=== PATIENT | female | born 1975 ===

== ENCOUNTER 2016-09-27 00:09 | Emergency (ER) | payer SELFPAY ==
[2016-09-27] MEDS ORDERED: Sodium Chloride 0.9% 1,000 ML IV ONE (00:40)
[2016-09-27] MEDS ORDERED: Sodium Chloride 0.9% 1,000 ML ONE (00:51)
[2016-09-27 01:08] LABS: SQUAMOUS EPITHIAL 1 /hpf (0-5); URINE BILIRUBIN NEGATIVE (NEGATIVE); URINE CLARITY Clear (Clear); URINE COLOR Straw (YELLOW); URINE GLUCOSE (UA) NORMAL (Normal); URINE LEUKOCYTE ESTERASE 1+ Leu/uL (Negative); URINE NITRATE NEGATIVE (NEGATIVE); URINE PROTEIN NEGATIVE (NEGATIVE); URINE UROBILINOGEN NORMAL mg/dL (0.2-1.0)
[2016-09-27 01:17] LABS: BASO % 0.4 % (0.0-2.0); EOS # 0.1 K/uL (0.0-0.7); EOS % 1.2 % (0.0-4.0); HEMOGLOBIN 12.2 g/dL (11.0-16.0); LYMPH # 2.3 K/uL (1.0-4.3); LYMPH % 25.2 % (20.0-40.0); MEAN CELL VOLUME 85.4 fL (81.0-99.0); MEAN CORPUSCULAR HGB CONC 33.9 g/dL (33.0-37.0); MEAN PLATELET VOLUME 7.3 fL (7.2-11.7); MONO # 0.9 K/uL (0.0-0.8); MONO % 9.6 % (0.0-10.0); NEUT # 5.9 K/uL (1.8-7.0); NEUT % 63.6 % (50.0-75.0); RBC 4.21 Mil/uL (3.80-5.20); RED CELL DISTRIBUTION WIDTH 13.4 % (11.5-14.5); WHITE BLOOD COUNT 9.3 K/uL (4.8-10.8)
[2016-09-27 01:20] LABS: ALBUMIN 3.8 g/dL (3.5-5.0)
[2016-09-27 01:22] LABS: ALB/GLOB RATIO 1.2 (1.0-2.1); ALT/SGPT 26 U/L (9-52); AST/SGOT 18 U/L (14-36); BLOOD UREA NITROGEN 12 mg/dL (7-17); CALCIUM 9.4 mg/dl (8.6-10.4); GFR AFRICAN-AMERICAN > 60; GFR NON-AFRICAN AMERICAN > 60
[2016-09-27 01:25] LABS: HCG,QUALITATIVE URINE POSITIVE (NEGATIVE)
[2016-09-27 01:48] LABS: URINE BLOOD 1+ (NEGATIVE)
[2016-09-27 02:11] VITALS: O2SAT 100
--- NOTE | 2016-09-27 04:20 | US ---
EXAM: US First Trimester, Transabdominal US , Transvaginal CLINICAL HISTORY: 40 years old, female; Pain; complicated by abdominal or pelvic pain; Lower; First trimester; Gestational age or lmp: 07/23/16; ; Additional info: Pain/bleeding, R/O ectopic TECHNIQUE: Real-time transabdominal and transvaginal obstetrical ultrasound of the maternal pelvis and a first trimester with image documentation. Transvaginal imaging was used for better evaluation of the fetus and adnexa. EXAM DATE/TIME: 09/27/2016 1:30 AM COMPARISON: No relevant prior studies available. FINDINGS: Uterus: Measures 11.5 x 6 x 7.6 cm. Demonstrates two separate endometrial stripes, highly suspicious for an underlying Mullerian duct anomaly, such as a bicornuate uterus or septate uterus. Single intrauterine gestational sac identified, located on the right side of the uterus. pole, yolk sac and amnion are seen. Estimated gestational age is 5 weeks, 6 days, based a crown-rump length of 3.1 mm. There is absence of detectable heart motion. There is absence of flow within the pole on color imaging. Findings are highly suspicious for intrauterine demise. The margins of the gestational sac are irregular, an abnormal finding. A 1.5 x 1.2 cm round, hypoechoic area is seen in the uterine myometrium anteriorly, suspicious for a small intramural fibroid. Cervix appears closed. Right ovary: Within normal limits in appearance. Measures 3.3 x 2.6 x 3.2 cm. Flow seen in the right ovary on color and Doppler imaging, with no evidence of torsion. Left ovary: Within normal limits in appearance. Measures 2.9 11.1 x 2.1 cm. Flow seen in the left ovary on color and Doppler imaging, with no evidence of torsion. Free fluid in the cul de sac: None seen. 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 There is a 5 week, 6 day intrauterine gestational sac, located in the right uterine horn. There is absence of detectable heart motion, suspicious for intrauterine demise. Short term ultrasound followup is recommended to confirm this. See above for remaining findings.
--- NOTE | 2016-09-27 04:48 | C.PDOC ---
Time Seen by Provider: 09/27/16 00:35 Chief Complaint (Nursing): Female Genitourinary History Per: Patient, Family, Business Applications Analyst History/Exam Limitations: language barrier Onset/Duration Of Symptoms: Days (2) Current Symptoms Are (Timing): Still Present Severity: Moderate Location Of Pain/Discomfort: Suprapubic Quality Of Discomfort: Cramping Exacerbating Factors: None Alleviating Factors: None Additional History Per: Prior Records Abnormal Vaginal Bleeding: Yes Last Menstral Period: July 23, 2016 Past Medical History Reviewed: Historical Data, Nursing Documentation, Vital Signs Vital Signs: Last Vital Signs Temp 98 F 09/27/16 04:49 Pulse 71 09/27/16 04:49 Resp 18 09/27/16 04:49 BP 116/60 09/27/16 04:49 Pulse Ox 100 09/27/16 04:50 - Medical History PMH: No Chronic Diseases Surgical History: No Surg Hx Family History: States: Unknown Family Hx - Social History Hx Alcohol Use: No Hx Substance Use: No - Immunization History Hx Tetanus Toxoid Vaccination: No Hx Influenza Vaccination: No Hx Pneumococcal Vaccination: No Review Of Systems Except As Marked, All Systems Reviewed And Found Negative. Constitutional: Negative for: Fever, Weakness Cardiovascular: Negative for: Chest Pain Respiratory: Negative for: Shortness of Breath Gastrointestinal: Negative for: Vomiting, Diarrhea Genitourinary: Positive for: Vaginal Bleeding, Pelvic Pain Musculoskeletal: Negative for: Neck Pain, Back Pain Skin: Negative for: Rash Neurological: Negative for: Weakness, Numbness, Seizures, Altered Mental Status Physical Exam - Physical Exam Appears: Non-toxic, No Acute Distress Skin: Normal Color, Warm, Dry, No Rash Head: Atraumatic, Normacephalic Eye(s): bilateral: Normal Inspection, PERRL, EOMI Neck: Normal ROM, Supple Cardiovascular: Rhythm Regular Respiratory: Normal Breath Sounds, No Accessory Muscle Use Gastrointestinal/Abdominal: Soft, Tenderness (mild suprapubic), No Guarding, No Rebound Back: No CVA Tenderness Extremity: Normal ROM Neurological/Psych: Oriented x3, Normal Motor, Normal Sensation ED Course And Treatment - Laboratory Results Result Diagrams: 09/27/16 01:04 09/27/16 01:04 Interpretation Of Abnormal: Possible UTI Urine POC: Positive O2 Sat by Pulse Oximetry: 100 Pulse Ox Interpretation: Normal - CT Scan/US Pelvic US Other Rad Studies (CT/US): Read By Radiologist, Radiology Report Reviewed CT/US Interpretation: IMPRESSION: Findings highly suspicious for an underlying Mullerian duct anomaly of the. uterus, such as a bicornuate or septate uterus. There is a 5 week, 6 day. intrauterine gestational sac, located in the right uterine horn. There is. absence of detectable heart motion, suspicious for intrauterine . demise. Short term ultrasound followup is recommended to confirm this. - Physician Consult Information Physician Contacted: Sen Chapman (Manager Loss Prevention) Outcome Of Conversation: She states pt should be discharged home and f/up with her senior net application developer for a repeat pelvic US. Disposition Counseled Patient/Family Regarding: Studies Performed, Diagnosis, Need For Followup, Rx Given - Disposition Disposition: HOME/ ROUTINE Disposition Time: 04:56 Condition: STABLE Additional Instructions: Follow up with your Manager Loss Prevention doctor within 1 week for further evaluation and treatment, including repeat pelvic ultrasound. Return to the ER if you develop fever, vomiting, heavy bleeding, worsening of symptoms or if you have any other concerns. Prescriptions: Cephalexin [cephalexin] 500 mg PO BID #14 cap Instructions: Threatened Miscarriage (ED) - Clinical Impression Clinical Impression: Threatened in first trimester
[2016-09-27 04:50] VITALS: BP 116/60; PULSE 71; RESP 18; TEMP 98
== END 2016-09-27 05:09 | disposition home or self-care (01) ==
LOC: C.ER 00:09
DX: O20.0 Threatened abortion (principal); Z3A.01 Less than 8 weeks gestation of pregnancy
CPT/HCPCS: 76805; 76817; 80053; 81001; 84702; 84703; 85025; 86850; 86900; 96360; 99285; J7040

== ENCOUNTER 2016-10-01 16:46 | Emergency (ER) | payer SELFPAY ==
[2016-10-01 16:59] VITALS: BP 109/72; PULSE 77; RESP 20; TEMP 98.5; O2SAT 100
--- NOTE | 2016-10-01 17:25 | C.PDOC ---
History Of Present Illness 40 year old female who presents to the ER with a complaint of vaginal bleeding. Patient had an US done last week that showed a possible demise; [place] [id number]. Patient is seeking guidance on what to do; denies fever , chills, nausea, vomiting, or abdominal pain. Time Seen by Provider: 10/01/16 17:14 Chief Complaint (Nursing): Abdominal Pain History Per: Patient History/Exam Limitations: no limitations Onset/Duration Of Symptoms: Days Current Symptoms Are (Timing): Still Present Radiation Of Pain To:: None Quality Of Discomfort: Unable To Describe Associated Symptoms: denies: Fever, Chills, Nausea, Vomiting Exacerbating Factors: None Alleviating Factors: None Recent travel outside of the [place]: No Abnormal Vaginal Bleeding: Yes Past Medical History Reviewed: Historical Data, Nursing Documentation, Vital Signs Vital Signs: Last Vital Signs Temp 98.5 F 10/01/16 16:57 Pulse 77 10/01/16 16:57 Resp 20 10/01/16 16:57 BP 109/72 10/01/16 16:57 Pulse Ox 100 10/01/16 17:25 - Medical History PMH: No Chronic Diseases Surgical History: No Surg Hx Family History: States: Unknown Family Hx - Social History Hx Alcohol Use: No Hx Substance Use: No - Immunization History Hx Tetanus Toxoid Vaccination: No Hx Influenza Vaccination: No Hx Pneumococcal Vaccination: No Review Of Systems Constitutional: Negative for: Fever, Chills Gastrointestinal: Negative for: Nausea, Vomiting, Abdominal Pain Genitourinary: Positive for: Vaginal Bleeding Physical Exam - Physical Exam Appears: Non-toxic, No Acute Distress, Other (Obese) Skin: Normal Color, Warm, Dry Head: Atraumatic, Normacephalic Oral Mucosa: Moist Chest: Symmetrical, No Tenderness Cardiovascular: Rhythm Regular, No Murmur Respiratory: Normal Breath Sounds, No Rales, No Rhonchi, No Wheezing Gastrointestinal/Abdominal: Soft, No Tenderness Neurological/Psych: Oriented x3, Normal Speech, Normal Cognition ED Course And Treatment O2 Sat by Pulse Oximetry: 100 (Room air) Pulse Ox Interpretation: Normal Medical Decision Making Medical Decision Making: natural in progress demise in US 1 week ago pt and family decline further w/u with informed consent. will f/u w obgyn as needed in about 2 weeks Disposition Doctor Will See Patient In The: Office Counseled Patient/Family Regarding: Studies Performed, Diagnosis - Disposition Referrals: [facility] [Outside] [facility] [Outside] [facility] [Outside] Disposition: HOME/ ROUTINE Disposition Time: 17:24 Condition: GOOD Additional Instructions: sigue con [facility] en 2 semanas thad necessario Instructions: Spontaneous Miscarriage (ED) Print Language: EAST TIMORESE - Clinical Impression Clinical Impression: in first trimester - Scribe Statement The provider has reviewed the documentation as recorded by the Scribe Josh Duong All medical record entries made by the Scribe were at my direction and personally dictated by me. I have reviewed the chart and agree that the record accurately reflects my personal performance of the history, physical exam, medical decision making, and the department course for this patient. I have also personally directed, reviewed, and agree with the discharge instructions and disposition.
== END 2016-10-01 17:42 | disposition home or self-care (01) ==
LOC: C.ER 16:46
DX: O03.9 Complete or unspecified spontaneous abortion without complication (principal)

== ENCOUNTER 2017-07-22 18:01 | Emergency (ER) | payer OTHER ==
--- NOTE | 2017-07-22 18:55 | C.PDOC ---
History Of Present Illness 41 year old female, who is currently 5 weeks (), presents to the ED for evaluation of brown-colored vaginal discharge which began a few days ago. She also reports mild abdominal cramping. She has not yet been evaluated by [facility]. Patient denies fever, chills. Time Seen by Provider: 07/22/17 18:12 Chief Complaint (Nursing): Female Genitourinary History Per: Patient History/Exam Limitations: no limitations Current Symptoms Are (Timing): Still Present Quality Of Discomfort: Cramping Associated Symptoms: denies: Fever, Chills Additional History Per: Patient : 6 Para: 2 Past Medical History Reviewed: Historical Data, Nursing Documentation, Vital Signs Vital Signs: Last Vital Signs Temp 98.0 F 07/22/17 21:14 Pulse 72 07/22/17 21:14 Resp 18 07/22/17 21:14 BP 123/76 07/22/17 21:14 Pulse Ox 100 07/22/17 22:16 - Medical History PMH: No Chronic Diseases Surgical History: No Surg Hx Family History: States: Unknown Family Hx - Social History Hx Alcohol Use: No Hx Substance Use: No - Immunization History Hx Tetanus Toxoid Vaccination: No Hx Influenza Vaccination: No Hx Pneumococcal Vaccination: No Review Of Systems Gastrointestinal: Positive for: Abdominal Pain (cramping ) Genitourinary: Positive for: Vaginal Discharge Physical Exam - Physical Exam Appears: Non-toxic, No Acute Distress Skin: Normal Color, Warm, Dry Head: Atraumatic, Normacephalic Eye(s): bilateral: Normal Inspection Oral Mucosa: Moist Neck: Supple Chest: Symmetrical, No Deformity, No Tenderness Cardiovascular: Rhythm Regular, No Murmur Respiratory: Normal Breath Sounds, No Rales, No Rhonchi, No Wheezing Gastrointestinal/Abdominal: Soft, No Tenderness, No Guarding, No Rebound Extremity: Normal ROM, Capillary Refill (less than 2 seconds ) Neurological/Psych: Oriented x3, Normal Speech, Normal Cognition ED Course And Treatment - Laboratory Results Result Diagrams: 07/22/17 19:24 07/22/17 19:24 O2 Sat by Pulse Oximetry: 100 (on RA) Pulse Ox Interpretation: Normal Medical Decision Making Medical Decision Making: Progress: Bloodwork, urinalysis, US Transvaginal ordered and reviewed. ro ectopc vs misccarige labs us reviewed. no fhr. discussed with dr ga ob manager of broadcast content. suspect early preg vs miscarriage. will need repeat studies, outpt ob f/u. notified pt of results. advise outpt fu and return precautions. Disposition - Disposition Referrals: [facility] [Outside] [facility] [Outside] [facility] [Outside] Gavi Ga MD [Staff Provider] - Disposition: HOME/ ROUTINE Disposition Time: 10:00 Condition: STABLE Additional Instructions: follow up with obgyn. return to er with worsening symptoms or concerns. you need to see your obgyn in the next 48 hours Instructions: Threatened Miscarriage (DC) Forms: [employer] ([place]) - Clinical Impression Clinical Impression: Threatened in first trimester - Scribe Statement The provider has reviewed the documentation as recorded by the Scribe (Chela Bailon) Provider Attestation: All medical record entries made by the Scribe were at my direction and personally dictated by me. I have reviewed the chart and agree that the record accurately reflects my personal performance of the history, physical exam, medical decision making, and the department course for this patient. I have also personally directed, reviewed, and agree with the discharge instructions and disposition.
[2017-07-22 19:26] LABS: BASO % 0.3 % (0.0-2.0); EOS # 0.1 K/uL (0.0-0.7); EOS % 1.1 % (0.0-4.0); HEMOGLOBIN 13.3 g/dL (11.0-16.0); LYMPH # 3.1 K/uL (1.0-4.3); LYMPH % 32.7 % (20.0-40.0); MEAN CELL VOLUME 85.3 fL (81.0-99.0); MEAN CORPUSCULAR HEMOGLOBIN 29.9 pg (27.0-31.0); MEAN PLATELET VOLUME 7.2 fL (7.2-11.7); MONO # 0.9 K/uL (0.0-0.8); MONO % 9.7 % (0.0-10.0); NEUT # 5.4 K/uL (1.8-7.0); NEUT % 56.2 % (50.0-75.0); NRBC % 0.1 % (0.0-2.0); RBC 4.44 Mil/uL (3.80-5.20); RED CELL DISTRIBUTION WIDTH 13.1 % (11.5-14.5); WHITE BLOOD COUNT 9.5 K/uL (4.8-10.8)
[2017-07-22 19:30] LABS: INR 0.9; PROTHROMBIN TIME 10.3 SECONDS (9.7-12.2)
[2017-07-22 19:41] LABS: ALB/GLOB RATIO 1.2 (1.0-2.1); ALBUMIN 4.2 g/dL (3.5-5.0); ALT/SGPT 21 U/L (9-52); AST/SGOT 22 U/L (14-36); BLOOD UREA NITROGEN 11 mg/dL (7-17); CALCIUM 9.4 mg/dl (8.6-10.4); GFR AFRICAN-AMERICAN > 60; GFR NON-AFRICAN AMERICAN > 60
[2017-07-22 19:41] LABS: HCG,QUALITATIVE URINE POSITIVE (NEGATIVE)
[2017-07-22 19:43] LABS: SQUAMOUS EPITHIAL < 1 /hpf (0-5); URINE BILIRUBIN NEGATIVE (NEGATIVE); URINE CLARITY Clear (Clear); URINE COLOR Straw (YELLOW); URINE GLUCOSE (UA) NORMAL (Normal); URINE LEUKOCYTE ESTERASE NEG Leu/uL (Negative); URINE PROTEIN NEGATIVE (NEGATIVE); URINE UROBILINOGEN NORMAL mg/dL (0.2-1.0)
[2017-07-22 19:47] LABS: URINE BLOOD 1+ (NEGATIVE)
[2017-07-22 21:15] VITALS: BP 123/76; PULSE 72; RESP 18; TEMP 98
--- NOTE | 2017-07-22 21:17 | US ---
EXAM: US , Transvaginal Exam: US TRANSABD FIRST TRIMESTER FIRST GEST EXAM DATE/TIME: Exam ordered 07/22/2017 6:29 PM CLINICAL HISTORY: 41 years old, female; Pain; Other: Abd pain; Gestational age or lmp: 4-1-18; ; Additional info: Abd pain TECHNIQUE: Real-time transabdominal and transvaginal obstetrical ultrasound of the maternal pelvis and a first trimester with image documentation. Transvaginal imaging was used for better evaluation of the fetus and adnexa. COMPARISON: No relevant prior studies available. FINDINGS: Gestation: There is a single intrauterine within the right uterine horn. Transvaginally, the gestational sac measures 1.37 x 1.35 x 1.1 cm for a mean sac diameter of 1.27 cm for a menstrual age of 5 weeks and 3 days. A yolk sac is present. Placenta/amniotic fluid: Cannot be adequately evaluated due to the early gestational age. Uterus/cervix: Transabdominally, the uterus measures 10.6 x 5 x 6.6 cm. No myometrial mass.Transvaginally, the uterus measures approximately 9.1 x 5.1 by 6.4 cm. 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 Ovaries: Transabdominally, the left ovary measures 3.1 x 2.5 x 2.8 cm. blood flow is seen in the left ovary on color Doppler examination. Transvaginally, the left ovary measures 3.5 x 2.6 x 2.7 cm and contains a complex thick rim cyst measuring 1.8 x 2.3 x 1.9 cm. blood flow is seen in the rim of the cyst on color Doppler examination. The right ovary is not seen as a separate structure on the transabdominal or transvaginal portion of the examination.. Free fluid: A trace amount of free fluid is seen the posterior cul-de-sac. IMPRESSION: 1. Single intrauterine with an estimated menstrual age of 5 weeks and 3 days. A pole or cardiac activity was not seen. Followup might be considered to confirm the presence of a live . 2. The intrauterine is located within the right uterine horn. 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
[2017-07-22 22:17] VITALS: O2SAT 100
== END 2017-07-22 21:48 | disposition home or self-care (01) ==
LOC: C.ER 18:01
DX: O20.0 Threatened abortion (principal); Z3A.01 Less than 8 weeks gestation of pregnancy

== ENCOUNTER 2017-09-02 08:42 | Emergency (ER) | payer OTHER ==
[2017-09-02 08:48] VITALS: TEMP 98
[2017-09-02 09:36] LABS: BASO % 0.3 % (0.0-2.0); EOS % 0.6 % (0.0-4.0); HEMOGLOBIN 12.7 g/dL (11.0-16.0); LYMPH % 27.4 % (20.0-40.0); MEAN CELL VOLUME 85.2 fL (81.0-99.0); MEAN CORPUSCULAR HEMOGLOBIN 29.3 pg (27.0-31.0); MEAN CORPUSCULAR HGB CONC 34.4 g/dL (33.0-37.0); MEAN PLATELET VOLUME 7.1 fL (7.2-11.7); MONO # 0.6 K/uL (0.0-0.8); MONO % 7.7 % (0.0-10.0); NEUT # 4.8 K/uL (1.8-7.0); RBC 4.34 Mil/uL (3.80-5.20); RED CELL DISTRIBUTION WIDTH 13.2 % (11.5-14.5); WHITE BLOOD COUNT 7.4 K/uL (4.8-10.8)
[2017-09-02 09:37] LABS: HCG,QUALITATIVE URINE POSITIVE (NEGATIVE)
[2017-09-02 09:39] LABS: SQUAMOUS EPITHIAL < 1 /hpf (0-5); URINE BILIRUBIN NEGATIVE (NEGATIVE); URINE BLOOD 1+ (NEGATIVE); URINE CLARITY Clear (Clear); URINE COLOR Yellow (YELLOW); URINE GLUCOSE (UA) NORMAL (Normal); URINE LEUKOCYTE ESTERASE NEG Leu/uL (Negative); URINE PROTEIN NEGATIVE (NEGATIVE); URINE UROBILINOGEN NORMAL mg/dL (0.2-1.0)
[2017-09-02 09:51] LABS: ALB/GLOB RATIO 1.4 (1.0-2.1); ALBUMIN 4.4 g/dL (3.5-5.0); ALT/SGPT 28 U/L (9-52); AST/SGOT 24 U/L (14-36); BLOOD UREA NITROGEN 9 mg/dL (7-17); CALCIUM 9.7 mg/dl (8.6-10.4); GFR AFRICAN-AMERICAN > 60; GFR NON-AFRICAN AMERICAN > 60
--- NOTE | 2017-09-02 10:02 | C.PDOC ---
History Of Present Illness 41 y/o female A3 currently 11 weeks presents to ED with c/o vaginal spotting since yesterday associated with suprapubic pain. Patient states she had Ultrasound 4 days ago and has appointment with OBGYN upcoming Tuesday for results. Patient admits to urinary frequency and denies fever, vomiting, dysuria, vaginal discharge, back pain or any other complaints at this time. Time Seen by Provider: 09/02/17 08:52 Chief Complaint (Nursing): Female Genitourinary History Per: Patient History/Exam Limitations: no limitations Onset/Duration Of Symptoms: Days Current Symptoms Are (Timing): Still Present Quality Of Discomfort: "Pain" Past Medical History Reviewed: Historical Data, Nursing Documentation, Vital Signs Vital Signs: Last Vital Signs Temp 98 F 09/02/17 11:44 Pulse 78 09/02/17 11:44 Resp 18 09/02/17 11:44 BP 126/73 09/02/17 11:44 Pulse Ox 100 09/02/17 15:43 - Medical History PMH: No Chronic Diseases Surgical History: No Surg Hx Family History: States: No Known Family Hx - Social History Hx Alcohol Use: No Hx Substance Use: No - Immunization History Hx Tetanus Toxoid Vaccination: No Hx Influenza Vaccination: No Hx Pneumococcal Vaccination: No Review Of Systems Constitutional: Negative for: Fever, Chills Gastrointestinal: Positive for: Abdominal Pain. Negative for: Nausea, Vomiting Genitourinary: Positive for: Frequency, Vaginal Bleeding. Negative for: Dysuria , Vaginal Discharge Skin: Negative for: Rash Physical Exam - Physical Exam Appears: Non-toxic, No Acute Distress Skin: Warm, Dry, No Rash Head: Atraumatic, Normacephalic Eye(s): bilateral: Normal Inspection, EOMI Nose: Normal Oral Mucosa: Moist Neck: Normal ROM, Supple Cardiovascular: Rhythm Regular Respiratory: Normal Breath Sounds, No Rales, No Rhonchi, No Wheezing Gastrointestinal/Abdominal: Soft, Tenderness (Suprapubic), No Guarding, No Rebound Back: No CVA Tenderness, No Paraspinal Tenderness Extremity: Normal ROM Neurological/Psych: Oriented x3, Normal Speech ED Course And Treatment - Laboratory Results Result Diagrams: 09/02/17 09:32 09/02/17 09:32 O2 Sat by Pulse Oximetry: 100 (RA) Pulse Ox Interpretation: Normal - CT Scan/US Pelvic US Other Rad Studies (CT/US): Read By Radiologist, Radiology Report Reviewed CT/US Interpretation: PROCEDURE: OB Pelvic Ultrasound. HISTORY: Bleeding. COMPARISON: None available. FINDINGS: UTERUS: Single intrauterine gestation. CRL equivalent to wks/days gestatioin. The gestational sac is irregular and diameter measures 1.80 cm equivalent to 6 weeks and 1 day gestation. Yolk sac is visualized however there is no evidence of pole. Fariba-gestational hemorrhage: None. Uterus measures 11.8 x 5.0 x 7.5 cm. There is increased vascularity posterior to the gestational sac on along the left lateral wall of the uterus. CERVIX: Long and closed. No cervical abnormality seen. RIGHT OVARY: Measures 3.0 x 1.4 x 2.1 cm. No mass. Normal flow. LEFT OVARY: Measures 3.1 x 1.9 x 2.4 cm. No mass. Normal flow. There is a 2.4 x 1.6 x 1.6 cm corpus luteum cyst. FREE FLUID: None. OTHER FINDINGS: None. IMPRESSION: Findings are most compatible with anembryonic . Progress Note: Blood work, Beta HCG, Urine culture, Pelvic US ordered. Case discussed with Dr Gomes, OB hospitalist who instructes discharge and f/u on Tuesday with pts OB. DIscussed work up resutls with pt and copies given. Instructed to f/u with OBGYN appointment upocoming Tuesday. Disposition - Disposition Disposition: HOME/ ROUTINE Disposition Time: 11:32 Condition: STABLE Additional Instructions: Follow up with your OB on Tuesday. Return to ER if symptoms persist or worsen. Instructions: Miscarriage (DC) Forms: [employer] (Azeri) Print Language: YEMENI - Clinical Impression Clinical Impression: Threatened in first trimester - PA / SWIM COACH / Resident Statement MD/DO has reviewed & agrees with the documentation as recorded. - Scribe Statement The provider has reviewed the documentation as recorded by the Vega Styles All medical record entries made by the Vega were at my direction and personally dictated by me. I have reviewed the chart and agree that the record accurately reflects my personal performance of the history, physical exam, medical decision making, and the department course for this patient. I have also personally directed, reviewed, and agree with the discharge instructions and disposition.
--- NOTE | 2017-09-02 11:15 | US ---
PROCEDURE: OB Pelvic Ultrasound HISTORY: Bleeding COMPARISON: None available. FINDINGS: UTERUS: Single intrauterine gestation. CRL equivalent to wks/days gestatioin The gestational sac is irregular and diameter measures 1.80 cm equivalent to 6 weeks and 1 day gestation Yolk sac is visualized however there is no evidence of pole. Fariba-gestational hemorrhage: None. Uterus measures 11.8 x 5.0 x 7.5 cm. There is increased vascularity posterior to the gestational sac on along the left lateral wall of the uterus. CERVIX: Long and closed. No cervical abnormality seen. RIGHT OVARY: Measures 3.0 x 1.4 x 2.1 cm. No mass. Normal flow. LEFT OVARY: Measures 3.1 x 1.9 x 2.4 cm. No mass. Normal flow. There is a 2.4 x 1.6 x 1.6 cm corpus luteum cyst. FREE FLUID: None. OTHER FINDINGS: None. IMPRESSION: Findings are most compatible with anembryonic .
[2017-09-02 11:45] VITALS: BP 126/73; PULSE 78; RESP 18
[2017-09-02 15:43] VITALS: O2SAT 100
[2017-09-02] MEDS ORDERED: Sodium Chloride 0.9% 1,000 ML IV ONE (17:28)
== END 2017-09-02 11:45 | disposition home or self-care (01) ==
LOC: C.ER 08:42
DX: O20.0 Threatened abortion (principal); Z3A.01 Less than 8 weeks gestation of pregnancy

== ENCOUNTER 2017-09-12 21:07 | Inpatient (IN) | payer OTHER ==
[2017-09-12] MEDS ORDERED: Sodium Chloride 0.9% 1,000 ML IV ONE ×2 (22:05→23:02)
[2017-09-12 22:22] LABS: BASO % 0.2 % (0.0-2.0); EOS % 0.1 % (0.0-4.0); HEMOGLOBIN 11.3 g/dL (11.0-16.0); LYMPH # 2.3 K/uL (1.0-4.3); LYMPH % 10.8 % (20.0-40.0); MEAN CELL VOLUME 85.9 fL (81.0-99.0); MEAN CORPUSCULAR HEMOGLOBIN 28.9 pg (27.0-31.0); MEAN CORPUSCULAR HGB CONC 33.7 g/dL (33.0-37.0); MEAN PLATELET VOLUME 7.5 fL (7.2-11.7); MONO % 4.6 % (0.0-10.0); NEUT # 18.1 K/uL (1.8-7.0); NEUT % 84.3 % (50.0-75.0); RBC 3.91 Mil/uL (3.80-5.20); RED CELL DISTRIBUTION WIDTH 13.8 % (11.5-14.5); WHITE BLOOD COUNT 21.5 K/uL (4.8-10.8)
[2017-09-12 22:29] LABS: INR 1.1; PROTHROMBIN TIME 11.7 SECONDS (9.7-12.2)
[2017-09-12 22:35] LABS: ALB/GLOB RATIO 1.5 (1.0-2.1); ALBUMIN 4.3 g/dL (3.5-5.0); ALT/SGPT 25 U/L (9-52); AST/SGOT 27 U/L (14-36); BLOOD UREA NITROGEN 12 mg/dL (7-17); CALCIUM 9.4 mg/dl (8.6-10.4); GFR AFRICAN-AMERICAN > 60; GFR NON-AFRICAN AMERICAN > 60
--- NOTE | 2017-09-12 23:03 | PCM.RRT ---
GLOBAL PROJECT MANAGER Nurses Assessment - Situation Date: 09/12/17 - Constitutional Appears: No Acute Distress Additional Comments: Abrasion and tenderenss on right back - Head Head Exam: NORMOCEPHALIC Additional Comments: abrasion on occiput, no ecchymosis present; slight tenderness to palpation - Eyes Eye Exam: EOMI, Normal appearance, PERRL - Respiratory Exam Respiratory Exam: Clear to Ausculation Bilateral, NORMAL BREATHING PATTERN. absent: Rhonchi, Wheezes - Cardiovascular Exam Cardiovascular Exam: REGULAR RHYTHM, +S1, +S2 - GI/Abdominal Exam GI & Abdominal Exam: Soft - Neurological Exam Neurological Exam: Awake Plan - Assessment of Findings&Treatment Plan GLOBAL PROJECT MANAGER for called for syncopal episode. Patient is in the ER with complaints of vaginal bleeded, threatened . Patient was in ultrasound, waiting to get transvaginal US. Walked to to the restroom, had a syncopal episode in the restroom. She hit her head and right side of the back. Initial vitals were 94/62 , Hr 77, 02 sat 100%. NS bolus started. Initial CBC at admission was 11.2 Repeat CBC, head CT, and thoracic xray ordered stat. Repeat vitalser BP 77/47, HR 81, sat 100%. Patient was transferred back to the ER for continued monitoring. Case discussed with ER physician.
[2017-09-12 23:45] LABS: BASO % 0.2 % (0.0-2.0); LYMPH # 1.1 K/uL (1.0-4.3); LYMPH % 8.2 % (20.0-40.0); MEAN CELL VOLUME 87.2 fL (81.0-99.0); MEAN CORPUSCULAR HEMOGLOBIN 29.9 pg (27.0-31.0); MEAN CORPUSCULAR HGB CONC 34.3 g/dL (33.0-37.0); MEAN PLATELET VOLUME 7.3 fL (7.2-11.7); MONO # 0.5 K/uL (0.0-0.8); MONO % 3.6 % (0.0-10.0); NEUT # 11.5 K/uL (1.8-7.0); PLATELET COUNT 155 K/uL (130-400); RBC 2.75 Mil/uL (3.80-5.20); RED CELL DISTRIBUTION WIDTH 13.4 % (11.5-14.5); WHITE BLOOD COUNT 13.1 K/uL (4.8-10.8)
--- NOTE | 2017-09-12 23:45 | C.PDOC ---
History Of Present Illness 41 y/o female, [id number], is 12 weeks and presents to ED for complaints of heavy vaginal bleeding. Patient was seen in September 02 for similar complaints. Prior US showed IUP. Denies any other physical complaints. Time Seen by Provider: 09/12/17 22:05 Chief Complaint (Nursing): Female Genitourinary History Per: Patient History/Exam Limitations: no limitations Onset/Duration Of Symptoms: Hrs Current Symptoms Are (Timing): Still Present Associated Symptoms: denies: Fever, Chills, Nausea, Vomiting, Diarrhea Alleviating Factors: None Recent travel outside of the [place]: No Abnormal Vaginal Bleeding: Yes : 6 Para: 2 Miscarriage: 4 Past Medical History Reviewed: Historical Data, Nursing Documentation, Vital Signs Vital Signs: Last Vital Signs Temp 98.2 F 09/14/17 08:00 Pulse 92 H 09/14/17 08:00 Resp 18 09/14/17 08:00 BP 96/58 L 09/14/17 08:00 Pulse Ox 99 09/14/17 08:00 - Medical History PMH: No Chronic Diseases Surgical History: No Surg Hx - [facility] Procedures TRANSFUSE NONAUT RED BLOOD CELLS IN PERIPH VEIN, PERC (09/13/17) Family History: States: Unknown Family Hx - Social History Hx Alcohol Use: No Hx Substance Use: No - Immunization History Hx Tetanus Toxoid Vaccination: No Hx Influenza Vaccination: No Hx Pneumococcal Vaccination: No Review Of Systems Constitutional: Negative for: Fever, Chills Gastrointestinal: Negative for: Nausea, Vomiting, Abdominal Pain, Diarrhea Genitourinary: Positive for: Vaginal Bleeding. Negative for: Dysuria Skin: Negative for: Rash Neurological: Negative for: Weakness, Numbness Physical Exam - Physical Exam Appears: Non-toxic, No Acute Distress Skin: Warm, Dry Head: Atraumatic, Normacephalic Eye(s): bilateral: Normal Inspection, PERRL, EOMI Nose: Normal, No Discharge Oral Mucosa: Moist Neck: Supple Chest: Symmetrical, No Tenderness Cardiovascular: Rhythm Regular, No Murmur Respiratory: Normal Breath Sounds, No Decreased Breath Sounds, No Rales, No Rhonchi, No Wheezing Gastrointestinal/Abdominal: Soft, Tenderness (Lower abdomen ) Pelvic: Vaginal Bleeding (Heavy ) Extremity: Normal ROM, No Deformity Extremity: Bilateral: Atraumatic, Normal Color And Temperature, Normal ROM Pulses: Left Dorsalis Pedis: Normal, Right Dorsalis Pedis: Normal Neurological/Psych: Oriented x3 (Awake and alert ), Normal Speech (Speaking in full sentences ), Other (No focal deficits ) Gait: Steady ED Course And Treatment - Laboratory Results Result Diagrams: 09/14/17 07:26 09/12/17 22:11 O2 Sat by Pulse Oximetry: 100 (RA) Pulse Ox Interpretation: Normal - CT Scan/US Transvaginal US Other Rad Studies (CT/US): Read By Radiologist, Radiology Report Reviewed CT/US Interpretation: EXAM: US Pelvis Complete, Transabdominal. CLINICAL HISTORY: 41 years old, female; Signs and symptoms; Other: Heavy bleeding; Additional info: 12 weeks. , heavy bleeding. TECHNIQUE: Real-time transabdominal pelvic ultrasound (complete) with image documentation. COMPARISON: US - TRANSVAGINAL 2017-09-12 22:41. FINDINGS: Uterus/cervix: Uterus measures 10.8 cm in length. Normal endometrial stripe thickness. No. myometrial mass. Right ovary: Unremarkable. No mass. Normal blood flow. Left ovary: Unremarkable. No mass. Normal blood flow. Free fluid: Small amount of free fluid in the cul-de-sac. Other findings: The endometrium is heterogeneous and measures 2 cm. There also appears to be. heterogeneous material within the cervix. Previously noted gestational sac and yolk sac are not seen. No flow is seen within endometrial material. No intrauterine seen. Findings are consistent. with spontaneous and endometrial and cervical hematoma. IMPRESSION: The endometrium is heterogeneous and measures 2 cm. There also appears to be heterogeneous. material within the cervix. Previously noted gestational sac and yolk sac are not seen. No flow is seen. within endometrial material. No intrauterine seen. Findings are consistent with. spontaneous and endometrial and cervical hematoma. CT Head Other Rad Studies (CT/US): Read By Radiologist, Radiology Report Reviewed CT/US Interpretation: EXAM: CT Head Without Intravenous Contrast. CLINICAL HISTORY: 41 years old, female; Pain; Headache and other: Fall; Additional info : Fell, hit back of head. Rapid. respond code. TECHNIQUE: Axial computed tomography images of the head/brain without intravenous contrast. All CT scans at. this facility use at least one of these dose optimization techniques: automated exposure control; mA. and/or kV adjustment per patient size ( includes targeted exams where dose is matched to clinical. indication); or iterative reconstruction. COMPARISON: No relevant prior studies available. FINDINGS: Brain: Unremarkable. No hemorrhage. No significant white matter disease. No edema. Ventricles: Unremarkable. No ventriculomegaly. Bones/joints : Unremarkable. No acute fracture. Soft tissues: Unremarkable. Sinuses: Unremarkable as visualized. No acute sinusitis. Mastoid air cells: Unremarkable as visualized. No mastoid effusion. IMPRESSION: Normal head/ brain CT. Critical Care Time - Critical Care Note Total Time (in mins): 90 Documented critical care: time excludes all time spent performing seperately billable procedures. Medical Decision Making Medical Decision Making: Administered IV fluids. Ordered BBK, blood work, urinalysis, and Transvaginal US. Prior US shows demise on July 22 and September 02. - Patient syncopized during US - Started patient on fluid resuscitation Discussed with rehabilitation counselor - Dr. Nick suggested to complete the US and start blood transfusion, and admit patient. Spoke with Dr. Hartman - Doctor will consider ICU after [employer]'s repeated US and D&C if necessary Disposition Doctor Will See Patient In The: Hospital Counseled Patient/Family Regarding: Studies Performed, Diagnosis - Disposition Disposition: HOSPITALIZED Disposition Time: 01:00 Condition: FAIR - Clinical Impression Clinical Impression: in first trimester, Hypotension due to blood loss - Scribe Statement The provider has reviewed the documentation as recorded by the Stalinibkaitlin Cuellar All medical record entries made by the Scribe were at my direction and personally dictated by me. I have reviewed the chart and agree that the record accurately reflects my personal performance of the history, physical exam, medical decision making, and the department course for this patient. I have also personally directed, reviewed, and agree with the discharge instructions and disposition.
[2017-09-12 23:47] LABS: HEMOGLOBIN 8.2 g/dL (11.0-16.0)
[2017-09-13 00:48] LABS: VENOUS BLOOD GAS BASE EXCESS -3.8 mmol/L (0.0-2.0); VENOUS BLOOD GAS PCO2 35 mmHg (40-60); VENOUS BLOOD GAS PO2 59 mm/Hg (30-55); VENOUS BLOOD PH 7.38 (7.32-7.43)
[2017-09-13] MEDS: cefOXitin IV 2 gm in Dextrose 2 GM/50 ML BAG IVPB SCH ×3 (03:11→18:03)
[2017-09-13 04:00] LABS: BANDS 3 % (0-2); LYMPHOCYTE 8 % (20-40); MONOCYTE 5 % (0-10); NEUTROPHIL 84 % (50-75); PLATELET ESTIMATE NORMAL (NORMAL); TOTAL CELLS COUNTED 100
[2017-09-13 05:17] LABS: BASO % 0.3 % (0.0-2.0); HEMOGLOBIN 9.8 g/dL (11.0-16.0); LYMPH # 1.4 K/uL (1.0-4.3); LYMPH % 12.7 % (20.0-40.0); MEAN CELL VOLUME 84.1 fL (81.0-99.0); MEAN CORPUSCULAR HEMOGLOBIN 29.1 pg (27.0-31.0); MEAN CORPUSCULAR HGB CONC 34.6 g/dL (33.0-37.0); MEAN PLATELET VOLUME 7.2 fL (7.2-11.7); MONO # 0.5 K/uL (0.0-0.8); MONO % 4.7 % (0.0-10.0); NEUT # 9.2 K/uL (1.8-7.0); NEUT % 82.3 % (50.0-75.0); RBC 3.36 Mil/uL (3.80-5.20); RED CELL DISTRIBUTION WIDTH 13.6 % (11.5-14.5); WHITE BLOOD COUNT 11.2 K/uL (4.8-10.8)
--- NOTE | 2017-09-13 07:26 | CT ---
PROCEDURE: CT HEAD WITHOUT CONTRAST HISTORY: fell, hit back of head COMPARISON: None available. TECHNIQUE: Axial computed tomography images were obtained through the head/brain without intravenous contrast. Coronal and sagittal reconstructions were also acquired. Radiation dose: Total exam DLP = 850 mGy-cm. FINDINGS: HEMORRHAGE: No intracranial hemorrhage seen. BRAIN: No mass effect or edema. No atrophy or chronic microvascular ischemic changes. VENTRICLES: Unremarkable. No hydrocephalus. CALVARIUM: Intact PARANASAL SINUSES: There is complete opacification of the right frontal sinus by mucosal thickening. Mucosal thickening also noted of the anterior right ethmoid air cells. Remainder of the Visualized paranasal sinuses are clear. MASTOID AIR CELLS: Visualized mastoid air cells are clear. OTHER FINDINGS: None. IMPRESSION: No mass, hemorrhage, or acute infarct identified. Sinus disease as above. Preliminary impression was provided by [facility]. Major Findings are concordant.
--- NOTE | 2017-09-13 07:43 | US ---
HISTORY: 12 Weeks , Heavy Bleeding. LMP 06/12/2017. Beta HCG level of 1,962 . COMPARISON: Ultrasound pelvis 09/02/2017 and 07/22/2017 TECHNIQUE: Grayscale and color Doppler sonographic images were obtained of the pelvis utilizing transabdominal and transvaginal approach. FINDINGS: UTERUS: Anteverted. Mildly enlarged measuring 10.8 x 5.4 x 7.2 cm. ENDOMETRIUM: Thickened measuring 2.1 cm. No intrauterine gestational sac identified. No vascular flow was identified within the endometrial canal. CERVIX: Closed and measures 3.3 cm. Nabothian cyst noted. Suggestion heterogeneous material within the endocervical canal, likely blood products. RIGHT OVARY: Measures 2.2 x 1.3 x 2.2 cm. Sonographically unremarkable Normal flow. LEFT OVARY: Measures 3 x 1.9 x 3 cm. Sonographically unremarkable Normal flow. FREE FLUID: No significant pelvic free fluid noted. OTHER FINDINGS: None. IMPRESSION: Mildly enlarged uterus. Thickened endometrium. No intrauterine gestational sac identified. Given the presence of prior gestational sac on ultrasounds of 09/02/2017 and 07/22/2017, findings likely represent in progress. Preliminary impression was provided by [facility]. Findings are concordant.
[2017-09-13 12:48] LABS: SQUAMOUS EPITHIAL 1 /hpf (0-5); URINE BACTERIA RARE (<OCC); URINE BILIRUBIN NEGATIVE (NEGATIVE); URINE BLOOD 3+ (NEGATIVE); URINE CLARITY Clear (Clear); URINE COLOR Yellow (YELLOW); URINE GLUCOSE (UA) NORMAL (Normal); URINE LEUKOCYTE ESTERASE NEG Leu/uL (Negative); URINE PROTEIN NEGATIVE (NEGATIVE); URINE UROBILINOGEN NORMAL mg/dL (0.2-1.0)
--- NOTE | 2017-09-13 16:23 | CP.PCM.CON ---
<Zachariah Zamudio - Last Filed: 09/13/17 17:21> History of Present Illness - History of Present Illness History of Present Illness: Patient is a 41 year old Ab4 with Pmhx of multiple miscarriages, that came to ED for complains of severe bleeding post-miscarriage. She was seen in the ED on September 02 for similar complains including vaginal spotting and suprapubic pain. Pt reports having 4 episodes of syncope, 2 at home and 2 in the hospital. Pt states vaginal bleeding contained large clots, but no passing tissue. On this visit, patient was on the U/S department and she fell in the bathroom and lost consciousness, hitting her head and back in the floor.a rapid response was called at the time. At time of admission, hemoglobin was 11.2 and repeated was 8.2. Pt received 2 Units of LRBCs. Pt denies Fever, chills, SOB, Chest pain, palpitations, headaches, Nausea, vomiting. Pt admits to small quantities of vaginal spotting. Patient denies family history of blood clots or female relatives with previous miscarriages. Medical team consulted to evaluate syncope PMD: Rodolfo Anandno ALL: none Meds: None Pmhx: multiple miscarriages, bicornate uterus Shx: none Social Hx: denies tobacco, alcohol or illicit drug use. FmHx: none Review of Systems - Review of Systems Systems not reviewed;Unavailable: Language Barrier - Constitutional Constitutional: absent: Chills, Fatigue, Fever, Headache - EENT Eyes: Irritation. absent: Change in Vision Ears: absent: Decreased Hearing Nose/Mouth/Throat: absent: Neck Pain - Breasts Breasts: As Per HPI - Cardiovascular Cardiovascular: absent: Chest Pain, Dyspnea, Lightheadedness, Orthopnea, Palpitations - Respiratory Respiratory: absent: Cough, Dyspnea, Dyspnea on Exertion - Gastrointestinal Gastrointestinal: absent: Abdominal Pain, Constipation, Diarrhea, Nausea, Vomiting - Genitourinary Genitourinary: absent: Change in Urinary Stream, Difficulty Urinating - Reproductive: Female Reproductive:Female: Abnormal Vaginal Bleeding - Menstruation Menstruation: As Per HPI - Musculoskeletal Musculoskeletal: Back Pain. absent: Muscle Cramps, Muscle Weakness, Neck Pain - Integumentary Integumentary: absent: Bleeding Lesions, Skin Pain - Neurological Neurological: absent: Abnormal Gait, Abnormal Hearing, Abnormal Speech, Confusion, Dizziness, Headaches, Syncope - Psychiatric Psychiatric: absent: Anxiety, Behavioral Changes, Change in Appetite, Depression , Memory Loss - Endocrine Endocrine: absent: Fatigue, Palpitations - Hematologic/Lymphatic Hematologic: absent: Easy Bleeding, Easy Bruising Past Patient History - Infectious Disease Hx of Infectious Diseases: None - Past Medical History & Family History Past Medical History?: Yes - Past Social History Smoking Status: Never Smoked - MUSCULOSKELETAL/RHEUMATOLOGICAL Hx Falls: Yes - GENITOURINARY/GYNECOLOGICAL Other/Comment: NORMAL PREGNANCIES, MISCARRIAGES AND - PSYCHIATRIC Hx Substance Use: No - SURGICAL HISTORY Hx Surgeries: No - ANESTHESIA Hx Anesthesia: No Meds Allergies/Adverse Reactions: Allergies Allergy/AdvReac Type Severity Reaction Status Date / Time No Known Allergies Allergy Verified 09/12/17 22:03 - Medications Medications: Current Medications Cefoxitin Sodium (Mefoxin Iv 2 Gm Duplex) 2 gm in 50 mls @ 100 mls/hr IVPB Q8H [facility] Last Admin: 09/13/17 10:35 Dose: 100 mls/hr Physical Exam - Constitutional Appears: Non-toxic, No Acute Distress - Head Exam Head Exam: ATRAUMATIC, NORMAL INSPECTION - Eye Exam Eye Exam: EOMI, Normal appearance, PERRL Pupil Exam: NORMAL ACCOMODATION, PERRL - ENT Exam ENT Exam: Mucous Membranes Moist, Normal Exam - Neck Exam Neck exam: Positive for: Full Rom, Normal Inspection - Respiratory Exam Respiratory Exam: Clear to Auscultation Bilateral, NORMAL BREATHING PATTERN. absent: Rales, Rhonchi, Wheezes - Cardiovascular Exam Cardiovascular Exam: REGULAR RHYTHM, +S1, +S2. absent: Rubs - GI/Abdominal Exam GI & Abdominal Exam: Normal Bowel Sounds, Soft, Tenderness. absent: Diminished Bowel Sounds, Guarding, Rebound Additional comments: Right Lower Quadrant tenderness on deep palpation - Extremities Exam Extremities exam: Positive for: normal inspection. Negative for: joint swelling , pedal edema, tenderness - Back Exam Additional comments: Echymosis noted on Right scapular region - Neurological Exam Neurological exam: Alert, Oriented x3 - Psychiatric Exam Psychiatric exam: Normal Affect, Normal Mood - Skin Additional comments: echymosis on Right scapular region on upper back Results - Vital Signs Recent Vital Signs: Last Vital Signs Temp 98.3 F 09/13/17 16:00 Pulse 82 09/13/17 16:00 Resp 19 09/13/17 16:00 BP 97/51 L 09/13/17 16:00 Pulse Ox 97 09/13/17 09:15 - Labs Result Diagrams: 09/13/17 05:12 09/12/17 22:11 Labs: Laboratory Results - last 24 hr 09/12/17 09/12/17 09/12/17 22:11 22:11 22:11 WBC 21.5 H D RBC 3.91 Hgb 11.3 Hct 33.6 L MCV 85.9 MCH 28.9 MCHC 33.7 RDW 13.8 Plt Count 261 MPV 7.5 Neut % (Auto) 84.3 H Lymph % (Auto) 10.8 L Routt % (Auto) 4.6 Eos % (Auto) 0.1 Baso % (Auto) 0.2 Neut # (Auto) 18.1 H Lymph # (Auto) 2.3 Routt # (Auto) 1.0 H Eos # (Auto) 0.0 Baso # (Auto) 0.0 Neutrophils % (Manual) Band Neutrophils % Lymphocytes % (Manual) Monocytes % (Manual) Platelet Estimate PT 11.7 INR 1.1 APTT 25 pO2 VBG pH VBG pCO2 VBG HCO3 VBG Total CO2 VBG O2 Sat (Calc) VBG Base Excess VBG Potassium Glucose Lactate Sodium 136 Potassium 3.4 L Chloride 104 Carbon Dioxide 18 L Anion Gap 18 BUN 12 Creatinine 0.7 Est GFR ( Amer) > 60 Est GFR (Non-Af Amer) > 60 POC Glucose (mg/dL) Random Glucose 171 H Calcium 9.4 Total Bilirubin 1.4 H AST 27 ALT 25 Alkaline Phosphatase 59 Total Protein 7.2 Albumin 4.3 Globulin 2.9 Albumin/Globulin Ratio 1.5 Beta HCG, Quant Venous Blood Potassium Urine Color Urine Clarity Urine pH Ur Specific Spring Urine Protein Urine Glucose (UA) Urine Ketones Urine Blood Urine Nitrate Urine Bilirubin Urine Urobilinogen Ur Leukocyte Esterase Urine WBC (Auto) Urine RBC (Auto) Ur Squamous Epith Cells Urine Bacteria Blood Type Antibody Screen 09/12/17 09/12/17 09/12/17 22:11 22:11 23:00 WBC RBC Hgb Hct MCV MCH MCHC RDW Plt Count MPV Neut % (Auto) Lymph % (Auto) Routt % (Auto) Eos % (Auto) Baso % (Auto) Neut # (Auto) Lymph # (Auto) Routt # (Auto) Eos # (Auto) Baso # (Auto) Neutrophils % (Manual) Band Neutrophils % Lymphocytes % (Manual) Monocytes % (Manual) Platelet Estimate PT INR APTT pO2 VBG pH VBG pCO2 VBG HCO3 VBG Total CO2 VBG O2 Sat (Calc) VBG Base Excess VBG Potassium Glucose Lactate Sodium Potassium Chloride Carbon Dioxide Anion Gap BUN Creatinine Est GFR ( Amer) Est GFR (Non-Af Amer) POC Glucose (mg/dL) 143 H Random Glucose Calcium Total Bilirubin AST ALT Alkaline Phosphatase Total Protein Albumin Globulin Albumin/Globulin Ratio Beta HCG, Quant 1962.20 Venous Blood Potassium Urine Color Urine Clarity Urine pH Ur Specific Spring Urine Protein Urine Glucose (UA) Urine Ketones Urine Blood Urine Nitrate Urine Bilirubin Urine Urobilinogen Ur Leukocyte Esterase Urine WBC (Auto) Urine RBC (Auto) Ur Squamous Epith Cells Urine Bacteria Blood Type AB POSITIVE Antibody Screen Negative 09/12/17 09/13/17 09/13/17 23:41 00:44 05:12 WBC 13.1 H 11.2 H RBC 2.75 L 3.36 L Hgb 8.2 L D 9.8 L Hct 23.9 L 28.3 L MCV 87.2 84.1 D MCH 29.9 29.1 MCHC 34.3 34.6 RDW 13.4 13.6 Plt Count 155 D 176 MPV 7.3 7.2 Neut % (Auto) 88.0 H 82.3 H Lymph % (Auto) 8.2 L 12.7 L Routt % (Auto) 3.6 4.7 Eos % (Auto) 0.0 0.0 Baso % (Auto) 0.2 0.3 Neut # (Auto) 11.5 H 9.2 H Lymph # (Auto) 1.1 1.4 Routt # (Auto) 0.5 0.5 Eos # (Auto) 0.0 0.0 Baso # (Auto) 0.0 0.0 Neutrophils % (Manual) 84 H Band Neutrophils % 3 H Lymphocytes % (Manual) 8 L Monocytes % (Manual) 5 Platelet Estimate Normal PT INR APTT pO2 59 H VBG pH 7.38 VBG pCO2 35 L VBG HCO3 21.8 VBG Total CO2 21.8 L VBG O2 Sat (Calc) 92.4 H VBG Base Excess -3.8 L VBG Potassium 3.7 Glucose 122 H Lactate 1.8 Sodium 139.0 Potassium Chloride 110.0 H Carbon Dioxide Anion Gap BUN Creatinine Est GFR ( Amer) Est GFR (Non-Af Amer) POC Glucose (mg/dL) Random Glucose Calcium Total Bilirubin AST ALT Alkaline Phosphatase Total Protein Albumin Globulin Albumin/Globulin Ratio Beta HCG, Quant Venous Blood Potassium 3.7 Urine Color Urine Clarity Urine pH Ur Specific Spring Urine Protein Urine Glucose (UA) Urine Ketones Urine Blood Urine Nitrate Urine Bilirubin Urine Urobilinogen Ur Leukocyte Esterase Urine WBC (Auto) Urine RBC (Auto) Ur Squamous Epith Cells Urine Bacteria Blood Type Antibody Screen 09/13/17 12:32 WBC RBC Hgb Hct MCV MCH MCHC RDW Plt Count MPV Neut % (Auto) Lymph % (Auto) Routt % (Auto) Eos % (Auto) Baso % (Auto) Neut # (Auto) Lymph # (Auto) Routt # (Auto) Eos # (Auto) Baso # (Auto) Neutrophils % (Manual) Band Neutrophils % Lymphocytes % (Manual) Monocytes % (Manual) Platelet Estimate PT INR APTT pO2 VBG pH VBG pCO2 VBG HCO3 VBG Total CO2 VBG O2 Sat (Calc) VBG Base Excess VBG Potassium Glucose Lactate Sodium Potassium Chloride Carbon Dioxide Anion Gap BUN Creatinine Est GFR ( Amer) Est GFR (Non-Af Amer) POC Glucose (mg/dL) Random Glucose Calcium Total Bilirubin AST ALT Alkaline Phosphatase Total Protein Albumin Globulin Albumin/Globulin Ratio Beta HCG, Quant Venous Blood Potassium Urine Color Yellow Urine Clarity Clear Urine pH 5.0 Ur Specific Spring 1.012 Urine Protein Negative Urine Glucose (UA) Normal Urine Ketones Trace Urine Blood 3+ H Urine Nitrate Negative Urine Bilirubin Negative Urine Urobilinogen Normal Ur Leukocyte Esterase Neg Urine WBC (Auto) 2 Urine RBC (Auto) 163 H Ur Squamous Epith Cells 1 Urine Bacteria Rare Blood Type Antibody Screen Assessment & Plan - Assessment and Plan (Free Text) Assessment: Syncope: -Likely due to miscarriage, hemoglobin drop from 11.3 to 8.2 -Pt is currently Asymptomatic after receiving 2 Uniuts of PRBCs - Will check EKG to R/O any cardiac abnormalities - continue to monitor telemetry until EKG is complete Leukocytosis: - on admission, WBC 21.5 -currently down trending, todays value 11.2 - U/A does not appear to show signs of UTI - Will check blood culture - F/U chest Xray - Continue cefoxitin as per OBGYN Miscarriage - transvaginal U/s does not show gestational sac - patient received 1 dose of methergine - further management as per OBGYN team -vaginal bleeding significantly decreased as per patient thank you for this consult. Medicine team will continue to follow until results of EKG and chest xray are received. Plan of care discussed with Dr Olmedo - Date & Time Date: 09/13/17 Time: 18:09 <Phoebe Olmedo - Last Filed: 09/13/17 18:36> Meds - Medications Medications: Current Medications Cefoxitin Sodium (Mefoxin Iv 2 Gm Duplex) 2 gm in 50 mls @ 100 mls/hr IVPB Q8H [facility] Last Admin: 09/13/17 18:03 Dose: 100 mls/hr Results - Vital Signs Recent Vital Signs: Last Vital Signs Temp 98.3 F 09/13/17 16:00 Pulse 95 H 09/13/17 18:00 Resp 19 09/13/17 16:00 BP 97/51 L 09/13/17 16:00 Pulse Ox 97 09/13/17 09:15 - Labs Result Diagrams: 09/13/17 05:12 09/12/17 22:11 Labs: Laboratory Results - last 24 hr 09/12/17 09/12/17 09/12/17 22:11 22:11 22:11 WBC 21.5 H D RBC 3.91 Hgb 11.3 Hct 33.6 L MCV 85.9 MCH 28.9 MCHC 33.7 RDW 13.8 Plt Count 261 MPV 7.5 Neut % (Auto) 84.3 H Lymph % (Auto) 10.8 L Routt % (Auto) 4.6 Eos % (Auto) 0.1 Baso % (Auto) 0.2 Neut # (Auto) 18.1 H Lymph # (Auto) 2.3 Routt # (Auto) 1.0 H Eos # (Auto) 0.0 Baso # (Auto) 0.0 Neutrophils % (Manual) Band Neutrophils % Lymphocytes % (Manual) Monocytes % (Manual) Platelet Estimate PT 11.7 INR 1.1 APTT 25 pO2 VBG pH VBG pCO2 VBG HCO3 VBG Total CO2 VBG O2 Sat (Calc) VBG Base Excess VBG Potassium Glucose Lactate Sodium 136 Potassium 3.4 L Chloride 104 Carbon Dioxide 18 L Anion Gap 18 BUN 12 Creatinine 0.7 Est GFR ( Amer) > 60 Est GFR (Non-Af Amer) > 60 POC Glucose (mg/dL) Random Glucose 171 H Calcium 9.4 Total Bilirubin 1.4 H AST 27 ALT 25 Alkaline Phosphatase 59 Total Protein 7.2 Albumin 4.3 Globulin 2.9 Albumin/Globulin Ratio 1.5 Beta HCG, Quant Venous Blood Potassium Urine Color Urine Clarity Urine pH Ur Specific Spring Urine Protein Urine Glucose (UA) Urine Ketones Urine Blood Urine Nitrate Urine Bilirubin Urine Urobilinogen Ur Leukocyte Esterase Urine WBC (Auto) Urine RBC (Auto) Ur Squamous Epith Cells Urine Bacteria Blood Type Antibody Screen 09/12/17 09/12/17 09/12/17 22:11 22:11 23:00 WBC RBC Hgb Hct MCV MCH MCHC RDW Plt Count MPV Neut % (Auto) Lymph % (Auto) Routt % (Auto) Eos % (Auto) Baso % (Auto) Neut # (Auto) Lymph # (Auto) Routt # (Auto) Eos # (Auto) Baso # (Auto) Neutrophils % (Manual) Band Neutrophils % Lymphocytes % (Manual) Monocytes % (Manual) Platelet Estimate PT INR APTT pO2 VBG pH VBG pCO2 VBG HCO3 VBG Total CO2 VBG O2 Sat (Calc) VBG Base Excess VBG Potassium Glucose Lactate Sodium Potassium Chloride Carbon Dioxide Anion Gap BUN Creatinine Est GFR ( Amer) Est GFR (Non-Af Amer) POC Glucose (mg/dL) 143 H Random Glucose Calcium Total Bilirubin AST ALT Alkaline Phosphatase Total Protein Albumin Globulin Albumin/Globulin Ratio Beta HCG, Quant 1962.20 Venous Blood Potassium Urine Color Urine Clarity Urine pH Ur Specific Spring Urine Protein Urine Glucose (UA) Urine Ketones Urine Blood Urine Nitrate Urine Bilirubin Urine Urobilinogen Ur Leukocyte Esterase Urine WBC (Auto) Urine RBC (Auto) Ur Squamous Epith Cells Urine Bacteria Blood Type AB POSITIVE Antibody Screen Negative 09/12/17 09/13/17 09/13/17 23:41 00:44 05:12 WBC 13.1 H 11.2 H RBC 2.75 L 3.36 L Hgb 8.2 L D 9.8 L Hct 23.9 L 28.3 L MCV 87.2 84.1 D MCH 29.9 29.1 MCHC 34.3 34.6 RDW 13.4 13.6 Plt Count 155 D 176 MPV 7.3 7.2 Neut % (Auto) 88.0 H 82.3 H Lymph % (Auto) 8.2 L 12.7 L Routt % (Auto) 3.6 4.7 Eos % (Auto) 0.0 0.0 Baso % (Auto) 0.2 0.3 Neut # (Auto) 11.5 H 9.2 H Lymph # (Auto) 1.1 1.4 Routt # (Auto) 0.5 0.5 Eos # (Auto) 0.0 0.0 Baso # (Auto) 0.0 0.0 Neutrophils % (Manual) 84 H Band Neutrophils % 3 H Lymphocytes % (Manual) 8 L Monocytes % (Manual) 5 Platelet Estimate Normal PT INR APTT pO2 59 H VBG pH 7.38 VBG pCO2 35 L VBG HCO3 21.8 VBG Total CO2 21.8 L VBG O2 Sat (Calc) 92.4 H VBG Base Excess -3.8 L VBG Potassium 3.7 Glucose 122 H Lactate 1.8 Sodium 139.0 Potassium Chloride 110.0 H Carbon Dioxide Anion Gap BUN Creatinine Est GFR ( Amer) Est GFR (Non-Af Amer) POC Glucose (mg/dL) Random Glucose Calcium Total Bilirubin AST ALT Alkaline Phosphatase Total Protein Albumin Globulin Albumin/Globulin Ratio Beta HCG, Quant Venous Blood Potassium 3.7 Urine Color Urine Clarity Urine pH Ur Specific Spring Urine Protein Urine Glucose (UA) Urine Ketones Urine Blood Urine Nitrate Urine Bilirubin Urine Urobilinogen Ur Leukocyte Esterase Urine WBC (Auto) Urine RBC (Auto) Ur Squamous Epith Cells Urine Bacteria Blood Type Antibody Screen 09/13/17 12:32 WBC RBC Hgb Hct MCV MCH MCHC RDW Plt Count MPV Neut % (Auto) Lymph % (Auto) Routt % (Auto) Eos % (Auto) Baso % (Auto) Neut # (Auto) Lymph # (Auto) Routt # (Auto) Eos # (Auto) Baso # (Auto) Neutrophils % (Manual) Band Neutrophils % Lymphocytes % (Manual) Monocytes % (Manual) Platelet Estimate PT INR APTT pO2 VBG pH VBG pCO2 VBG HCO3 VBG Total CO2 VBG O2 Sat (Calc) VBG Base Excess VBG Potassium Glucose Lactate Sodium Potassium Chloride Carbon Dioxide Anion Gap BUN Creatinine Est GFR ( Amer) Est GFR (Non-Af Amer) POC Glucose (mg/dL) Random Glucose Calcium Total Bilirubin AST ALT Alkaline Phosphatase Total Protein Albumin Globulin Albumin/Globulin Ratio Beta HCG, Quant Venous Blood Potassium Urine Color Yellow Urine Clarity Clear Urine pH 5.0 Ur Specific Spring 1.012 Urine Protein Negative Urine Glucose (UA) Normal Urine Ketones Trace Urine Blood 3+ H Urine Nitrate Negative Urine Bilirubin Negative Urine Urobilinogen Normal Ur Leukocyte Esterase Neg Urine WBC (Auto) 2 Urine RBC (Auto) 163 H Ur Squamous Epith Cells 1 Urine Bacteria Rare Blood Type Antibody Screen Attending/Attestation - Attestation I have personally seen and examined this patient.: Yes I have fully participated in the care of the patient.: Yes I have reviewed all pertinent clinical information: Yes Notes (Text): seen and examined by me Patient has no fever,no nausea,no vomting,no dizziness,no chest pain,wbc is coming down.mild abdominal pain. EKG normal,chest x ray with out infiltrate Examination shows clear lungs and mild right lower quadrant tenderness Patient can be transferred to cargo agent unit please Follow blood culture report Discussed with the patient and discussed about following blood culture Her syncope is likely due to hypotension and blood loss. She is stabe to transfer to cargo agent/obs floor I agree about assessment and the plan of the resident
--- NOTE | 2017-09-13 17:48 | RAD ---
HISTORY: leukocytosis COMPARISON: No prior. FINDINGS: LUNGS: No active pulmonary disease. PLEURA: No significant pleural effusion identified, no pneumothorax apparent. CARDIOVASCULAR: Normal. OSSEOUS STRUCTURES: No significant abnormalities. VISUALIZED UPPER ABDOMEN: Normal. OTHER FINDINGS: None. IMPRESSION: No active disease.
--- NOTE | 2017-09-14 02:14 | CP.PCM.PN ---
Subjective - Date & Time of Evaluation Date of Evaluation: 09/13/17 Time of Evaluation: 14:50 - Subjective Subjective: 41 yo female admitted from the ER to a Telemetry bed after a complete miscarriage was diagnosed by Dr. Nick and pt experienced a Syncopal episode while in [place] for an examination. Today, pt states that she feel much better and denies any large bleeding. Objective - Vital Signs/Intake and Output Vital Signs (last 24 hours): Temp Pulse Resp BP Pulse Ox 97.1 F L 77 20 100/55 L 99 09/13/17 21:47 09/13/17 21:47 09/13/17 21:47 09/13/17 21:47 09/13/17 21:47 Intake and Output: 09/13/17 09/14/17 18:59 06:59 Intake Total 940 Output Total 690 Balance 250 - Medications Medications: Current Medications Cefoxitin Sodium (Mefoxin Iv 2 Gm Duplex) 2 gm in 50 mls @ 100 mls/hr IVPB Q8H [facility] Last Admin: 09/13/17 18:03 Dose: 100 mls/hr Methylergonovine Maleate (Methergine) 0.2 mg PO TID [facility] Last Admin: 09/14/17 02:01 Dose: 0.2 mg - Labs Labs: 09/13/17 05:12 09/12/17 22:11 PT 11.7 SECONDS (9.7-12.2) 09/12/17 22:11 INR 1.1 09/12/17 22:11 APTT 25 SECONDS (21-34) 09/12/17 22:11 - Constitutional Appears: Well, No Acute Distress - Head Exam Head Exam: NORMAL INSPECTION - ENT Exam ENT Exam: Mucous Membranes Moist - Respiratory Exam Respiratory Exam: NORMAL BREATHING PATTERN - Cardiovascular Exam Cardiovascular Exam: REGULAR RHYTHM - GI/Abdominal Exam GI & Abdominal Exam: Soft - Exam Exam: NORMAL INSPECTION External exam: NORMAL EXTERNAL EXAM Bimanual exam: NORMAL BIMANUAL EXAM Assessment and Plan - Assessment and Plan (Free Text) Assessment: 41 yo female with 2 's years ago and 3 previous miscarriages Complete Miscarriage with excess bleeding, Mild to mderate Anemia and Syncopal episode Hx of 3 previous miscarriages at about the same gestational age as this one Medical Consultation was performed as requested and she was cleared from the Telemetry bed Appreciate Medical Consultation Plan: Transferred to Antepartum unit in Stable and Satisfactory condition Will repeat BHCG in AM Continue Methergine po TID Declines pain medication at time of my visit.
[2017-09-14] MEDS: cefOXitin IV 2 gm in Dextrose 2 GM/50 ML BAG IVPB SCH (03:10)
[2017-09-14 07:38] LABS: BASO % 0.3 % (0.0-2.0); EOS # 0.1 K/uL (0.0-0.7); HEMOGLOBIN 9.8 g/dL (11.0-16.0); LYMPH # 2.4 K/uL (1.0-4.3); LYMPH % 27.1 % (20.0-40.0); MEAN CELL VOLUME 83.9 fL (81.0-99.0); MEAN CORPUSCULAR HEMOGLOBIN 29.6 pg (27.0-31.0); MEAN CORPUSCULAR HGB CONC 35.3 g/dL (33.0-37.0); MEAN PLATELET VOLUME 7.5 fL (7.2-11.7); MONO # 0.7 K/uL (0.0-0.8); MONO % 7.9 % (0.0-10.0); NEUT # 5.7 K/uL (1.8-7.0); NEUT % 63.7 % (50.0-75.0); NRBC % 0.1 % (0.0-2.0); RBC 3.29 Mil/uL (3.80-5.20); RED CELL DISTRIBUTION WIDTH 14.2 % (11.5-14.5); WHITE BLOOD COUNT 8.9 K/uL (4.8-10.8)
--- NOTE | 2017-09-14 08:23 | CP.PCM.PN ---
Subjective - Date & Time of Evaluation Date of Evaluation: 09/14/17 Time of Evaluation: 08:40 - Subjective Subjective: pt was seen at bed side, pin under cotrol,no n/v,tolerating,min lochia, +flatus abd soft,non tender ext no edema,no ten Objective - Vital Signs/Intake and Output Vital Signs (last 24 hours): Temp Pulse Resp BP Pulse Ox 97.1 F L 77 20 100/55 L 99 09/13/17 21:47 09/13/17 21:47 09/13/17 21:47 09/13/17 21:47 09/13/17 21:47 - Medications Medications: Current Medications Cefoxitin Sodium (Mefoxin Iv 2 Gm Duplex) 2 gm in 50 mls @ 100 mls/hr IVPB Q8H [facility] Last Admin: 09/14/17 03:10 Dose: 100 mls/hr Methylergonovine Maleate (Methergine) 0.2 mg PO TID [facility] Last Admin: 09/14/17 02:01 Dose: 0.2 mg - Labs Labs: 09/14/17 07:26 09/12/17 22:11 PT 11.7 SECONDS (9.7-12.2) 09/12/17 22:11 INR 1.1 09/12/17 22:11 APTT 25 SECONDS (21-34) 09/12/17 22:11 Assessment and Plan - Assessment and Plan (Free Text) Assessment: 41 yr s/p complete Plan: dc home doxycyline 100 mg bid no sex f/u in [facility] on tuesday arianna orn
--- NOTE | 2017-09-14 08:24 | CP.PCM.DIS ---
Provider - Provider Date of Admission: 09/13/17 00:10 Attending physician: Kt Nick MD Time Spent in preparation of Discharge (in minutes): 20 Hospital Course - Lab Results Lab Results: Most Recent Lab Values WBC 8.9 K/uL (4.8-10.8) 09/14/17 07:26 RBC 3.29 Mil/uL (3.80-5.20) L 09/14/17 07:26 Hgb 9.8 g/dL (11.0-16.0) L 09/14/17 07:26 Hct 27.6 % (34.0-47.0) L 09/14/17 07: MCV 83.9 fL (81.0-99.0) 09/14/17 07: MCH 29.6 pg (27.0-31.0) 09/14/17 07: MCHC 35.3 g/dL (33.0-37.0) 09/14/17 07: RDW 14.2 % (11.5-14.5) 09/14/17 07: Plt Count 155 K/uL (130-400) 09/14/17 07: MPV 7.5 fL (7.2-11.7) 09/14/17 07: Neut % (Auto) 63.7 % (50.0-75.0) 09/14/17 07: Lymph % (Auto) 27.1 % (20.0-40.0) 09/14/17 07: [place] % (Auto) 7.9 % (0.0-10.0) 09/14/17 07: Eos % (Auto) 1.0 % (0.0-4.0) 09/14/17 07:26 Baso % (Auto) 0.3 % (0.0-2.0) 09/14/17 07: Neut # (Auto) 5.7 K/uL (1.8-7.0) 09/14/17 07: Lymph # (Auto) 2.4 K/uL (1.0-4.3) 09/14/17 07:26 [place] # (Auto) 0.7 K/uL (0.0-0.8) 09/14/17 07:26 Eos # (Auto) 0.1 K/uL (0.0-0.7) 09/14/17 07:26 Baso # (Auto) 0.0 K/uL (0.0-0.2) 09/14/17 07:26 Neutrophils % (Manual) 84 % (50-75) H 09/12/17 23:41 Band Neutrophils % 3 % (0-2) H 09/12/17 23:41 Lymphocytes % (Manual) 8 % (20-40) L 09/12/17 23:41 Monocytes % (Manual) 5 % (0-10) 09/12/17 23:41 Platelet Estimate Normal (NORMAL) 09/12/17 23:41 PT 11.7 SECONDS (9.7-12.2) 09/12/17 22:11 INR 1.1 09/12/17 22:11 APTT 25 SECONDS (21-34) 09/12/17 22:11 pO2 59 mm/Hg (30-55) H 09/13/17 00:44 VBG pH 7.38 (7.32-7.43) 09/13/17 00:44 VBG pCO2 35 mmHg (40-60) L 09/13/17 00:44 VBG HCO3 21.8 mmol/L 09/13/17 00:44 VBG Total CO2 21.8 mmol/L (22-28) L 09/13/17 00:44 VBG O2 Sat (Calc) 92.4 % (40-65) H 09/13/17 00:44 VBG Base Excess -3.8 mmol/L (0.0-2.0) L 09/13/17 00:44 VBG Potassium 3.7 mmol/L (3.6-5.2) 09/13/17 00:44 Sodium 139.0 mmol/l (132-148) 09/13/17 00:44 Chloride 110.0 mmol/L (98-107) H 09/13/17 00:44 Glucose 122 mg/dl (65-105) H 09/13/17 00:44 Lactate 1.8 mmol/L (0.7-2.1) 09/13/17 00:44 Sodium 136 mmol/L (132-148) 09/12/17 22:11 Potassium 3.4 mmol/L (3.6-5.2) L 09/12/17 22:11 Chloride 104 mmol/L (98-107) 09/12/17 22:11 Carbon Dioxide 18 mmol/L (22-30) L 09/12/17 22:11 Anion Gap 18 (10-20) 09/12/17 22:11 BUN 12 mg/dL (7-17) 09/12/17 22:11 Creatinine 0.7 mg/dL (0.7-1.2) 09/12/17 22:11 Est GFR ( Amer) > 60 09/12/17 22:11 Est GFR (Non-Af Amer) > 60 09/12/17 22:11 POC Glucose (mg/dL) 143 mg/dL (65-110) H 09/12/17 23:00 Random Glucose 171 mg/dL (65-105) H 09/12/17 22:11 Calcium 9.4 mg/dl (8.6-10.4) 09/12/17 22:11 Total Bilirubin 1.4 mg/dL (0.2-1.3) H 09/12/17 22:11 AST 27 U/L (14-36) 09/12/17 22:11 ALT 25 U/L (9-52) 09/12/17 22:11 Alkaline Phosphatase 59 U/L (38-126) 09/12/17 22:11 Total Protein 7.2 g/dL (6.3-8.3) 09/12/17 22:11 Albumin 4.3 g/dL (3.5-5.0) 09/12/17 22:11 Globulin 2.9 gm/dL (2.2-3.9) 09/12/17 22:11 Albumin/Globulin Ratio 1.5 (1.0-2.1) 09/12/17 22:11 Beta HCG, Quant 277.41 mIU/ML 09/14/17 07:26 Venous Blood Potassium 3.7 mmol/L (3.6-5.2) 09/13/17 00:44 Urine Color Yellow (YELLOW) 09/13/17 12:32 Urine Clarity Clear (Clear) 09/13/17 12:32 Urine pH 5.0 (5.0-8.0) 09/13/17 12:32 Ur Specific [place] 1.012 (1.003-1.030) 09/13/17 12:32 Urine Protein Negative mg/dL (NEGATIVE) 09/13/17 12:32 Urine Glucose (UA) Normal mg/dL (Normal) 09/13/17 12:32 Urine Ketones Trace mg/dL (NEGATIVE) 09/13/17 12:32 Urine Blood 3+ (NEGATIVE) H 09/13/17 12:32 Urine Nitrate Negative (NEGATIVE) 09/13/17 12:32 Urine Bilirubin Negative (NEGATIVE) 09/13/17 12:32 Urine Urobilinogen Normal mg/dL (0.2-1.0) 09/13/17 12:32 Ur Leukocyte Esterase Neg Miguel/uL (Negative) 09/13/17 12:32 Urine WBC (Auto) 2 /hpf (0-5) 09/13/17 12:32 Urine RBC (Auto) 163 /hpf (0-3) H 09/13/17 12:32 Ur Squamous Epith Cells 1 /hpf (0-5) 09/13/17 12:32 Urine Bacteria Rare (<OCC) 09/13/17 12:32 Blood Type AB POSITIVE 09/12/17 22:11 Antibody Screen Negative 09/12/17 22:11 Discharge Exam - Head Exam Head Exam: NORMAL INSPECTION - Eye Exam Eye Exam: EOMI, Normal appearance, PERRL Pupil Exam: NORMAL ACCOMODATION, PERRL - GI/Abdominal Exam GI & Abdominal Exam: Normal Bowel Sounds - Rectal Exam Rectal Exam: NORMAL INSPECTION - Exam Exam: Circumcision, NORMAL INSPECTION External exam: NORMAL EXTERNAL EXAM Speculum exam: NORMAL SPECULUM EXAM Bimanual exam: NORMAL BIMANUAL EXAM - Neurological Exam Neurological exam: Alert, CN II-XII Intact, Normal Gait, Oriented x3, Reflexes Normal - Psychiatric Exam Psychiatric exam: Normal Affect, Normal Mood - Skin Skin Exam: Dry, Intact, Normal Color, Warm Discharge Plan - Follow Up Plan Condition: GOOD Disposition: HOME/ ROUTINE
[2017-09-14 08:44] VITALS: BP 96/58; PULSE 92; RESP 18; TEMP 98.2
--- NOTE | 2017-09-15 21:02 | CARD ---
APPROVED REPORT EKG Measurement Heart [id number] <Conclusion> Normal sinus rhythm Normal ECG
[2017-09-16 00:25] VITALS: O2SAT 100
== END 2017-09-14 11:44 | disposition home or self-care (01) | DRG 380 ==
LOC: C.ER 21:07 → C.9E 09-13 00:10 → C.9I 09-13 07:05 → C.4M 09-13 20:30
PROVIDERS: ADMIT Obstetrics & Gynecology; ATTEND Obstetrics & Gynecology
PROC: 30233N1 Transfusion of Nonautologous Red Blood Cells into Peripheral Vein, Percutaneous Approach (ICD-10-PCS; principal; 2017-09-13)
DX: O03.6 Delayed or excessive hemorrhage following complete or unspecified spontaneous abortion (principal); D62 Acute posthemorrhagic anemia; D72.829 Elevated white blood cell count, unspecified; W19.XXXA Unspecified fall, initial encounter; Y92.002 Bathroom of unspecified non-institutional (private) residence as the place of occurrence of the external cause; Z3A.12 12 weeks gestation of pregnancy